=== PATIENT | female | born 1990 | race African-American/Black ===

== ENCOUNTER 2020-03-17 23:27 | Emergency (ER) | payer OTHER ==
[~2020-03-17] VITALS: Ht 165.1 cm; Wt 63.5 kg
[2020-03-17 23:49] VITALS: BP 115/78
[2020-03-17 23:59] VITALS: BP 115/78
[2020-03-18] MEDS ORDERED: POLYTRIM OP SOL10 ML OPHTHALM (00:01)
--- NOTE | 2020-03-18 00:01 | Emergency Room Report ---
History of Present Illness General Chief Complaint: Eye Problems Source: Patient Present Illness [facility] This is a 30-year-old female with no past medical history. She presents with chief complaint of eye irritation. She actually got some facial cleanser into her left eye. Contain glycolic acid. She has been irrigating her eye with water. Complaining of some redness. No fever chills but no nausea no vomiting. No problem with her vision. No other injury. Allergies: Coded Allergies: PINEAPPLE (Verified Allergy, Unknown, 03/17/20) SHELLFISH DERIVED (Verified Allergy, Unknown, 03/17/20) COVID-19 Screening Contact w/high risk pt: No Recent Travel to affected area: No Experienced COVID-19 symptoms?: No COVID-19 Testing performed [employer]: No Patient History Past Medical History: see triage record, old chart reviewed Past Surgical History: none Pertinent Family History: none Social History: Denies: smoking Last Menstrual Period: 03/2020 Now: No Immunizations: other Reviewed Nursing Documentation: PMH: Agreed; PSxH: Agreed Nursing Documentation-PMH Past Medical History: No Stated History Review of Systems Eye: Reports: eye pain; Denies: blurred vision ENT: Denies: ear pain, nose congestion, throat swelling Respiratory: Denies: cough, shortness of breath Cardiovascular: Denies: chest pain, palpitations Gastrointestinal: Denies: abdominal pain, diarrhea, nausea, vomiting Musculoskeletal: Denies: back pain, joint pain Skin: Denies: rash Neurological: Denies: headache, numbness Endocrine: Denies: increased thirst, increased urine Hematologic/Lymphatic: Denies: easy bruising All Other Systems: negative except mentioned in HPI Physical Exam Vital Signs Date Time Temp Pulse Resp B/P (MAP) Pulse Ox O2 Delivery O2 Flow Rate FiO2 03/17/20 23:39 98.2 81 16 115/78 (90) 98 Room Air Vitals normal Sp02 EP Interpretation: reviewed, normal General Appearance: well appearing, no apparent distress, alert Head: normocephalic, atraumatic Eyes: left eye other - Left eye: Conjunctiva and sclera injected. No abrasion. No foreign body.; bilateral eye PERRL, bilateral eye EOMI ENT: hearing grossly normal, normal pharynx Neck: full range of motion, supple, no meningismus Respiratory: chest non-tender, lungs clear, normal breath sounds Cardiovascular #1: regular rate, rhythm, no murmur Gastrointestinal: normal bowel sounds, non tender, no mass, no organomegaly, no bruit, non-distended Musculoskeletal: back normal, normal range of motion, gait/station normal Psychiatric: mood/affect normal Medical Decision Making Diagnostic Impression: Primary Impression: Chemical conjunctivitis of left eye ER Course Patient with chemical irritation of her sclera and conjunctiva. No globe rupture. No abrasion. Will irrigate with Jesus lens. Last Vital Signs Date Time Temp Pulse Resp B/P (MAP) Pulse Ox O2 Delivery O2 Flow Rate FiO2 03/17/20 23:39 98.2 81 16 115/78 (90) 98 Room Air Status: improved Disposition: HOME, SELF-CARE Condition: Stable Scripts Polymyxin/Trimethoprim (Polytrim Eye Drops) 10 Ml Drops 2 DROP OPHTHALM THREE TIMES A DAY, #1 EA Instill in affected eye for 7 days Prov: Kev Carrion MD 03/18/20 Referrals: NON PHYSICIAN (PCP) Patient Instructions: Chemical Conjunctivitis, [id number] Additional Instructions: Do not rub your eyes. Follow-up your doctor in 2-3 days if not better. You may need referral to see an eye doctor if symptoms worsen. Return if symptoms worsen. Kev Carrion MD Mar 18, 2020 00:01
== END 2020-03-17 23:59 | disposition home or self-care (01) ==
LOC: EMR 23:50
DX: H10.212 Acute toxic conjunctivitis, left eye (principal); Z91.018 Allergy to other foods; Z91.013 Allergy to seafood
CPT/HCPCS: 99282